=== PATIENT | male | born 1955 | race Caucasian/White ===

== ENCOUNTER 2022-01-29 09:01 | Outpatient (CLI) | payer OTHER, SELFPAY ==
--- NOTE | 2022-01-29 09:00 | ECG_ITS ---
Measurements Intervals [place] Rate: 60 P: 36 OR: 199 QRS: -14 QRSD: 110 T: 6 QT: 435 QTc: 438 Interpretive Statements SINUS RHYTHM WITH SINUS ARRHYTHMIA NO PREVIOUS ECG AVAILABLE FOR COMPARISON Electronically Signed On 01-29-2022 13:48:03 CDT by Soledad Cottrell M.D.
[2022-01-29 09:36] LABS: Prothrombin Time 12.6 Seconds (11.1-14.7)
[2022-01-29 09:37] LABS: Partial Thromboplastin Time 25.6 SECONDS (22.3-36.8)
[2022-01-29 09:38] LABS: Anion Gap 5 mmol/L (8-16); Blood Urea Nitrogen 26 mg/dL (9-20); Calcium 8.8 mg/dL (8.4-10.2); Carbon Dioxide 25 mmol/L (22-30); Chloride 105 mmol/L (98-107); Estimated Glomerular Filt Rate > 60; Glucose 96 mg/dL (65-110); Potassium 4.4 mmol/L (3.4-5.0); Sodium 135 mmol/L (137-145)
== END 2022-01-29 09:02 | disposition home or self-care (01) ==
LOC: ANHSURGERY 09:04
PROVIDERS: Anesthesiology; PCP Internal Medicine; Visit Provider Urology
DX: Z01.818 Encounter for other preprocedural examination (principal); I10 Essential (primary) hypertension; I49.9 Cardiac arrhythmia, unspecified
CPT/HCPCS: 36415; 80048; 85610; 85730; 93005

== ENCOUNTER 2022-01-31 01:02 | Day surgery (SDC) | payer OTHER, SELFPAY ==
[2022-01-28 11:24] VITALS: BMI 31.1
--- NOTE | 2022-01-28 11:44 | PC.NURSE ---
Addendum entered by Emily Brown RN 01/29/22 07:20: DO NOT TAKE LOSARTAN MORNING OF SURGERY. Original Note: Report to the Outpatient Waiting Room, entrance under the green pavilion located off [facility], at time _0630_ on date _01/31/22__. OR Time: _08__. - You and your visitor will be asked a series of questions to screen for COVID 19 for your protection. - A mask is required within the hospital. Preoperative COVID Testing Requirements: No COVID Test needed if: (proof is required; if not received patient will have Rapid Test prior to entry) - Patient has received COVID Vaccine at least 14 days prior to procedure date or - Patient has positive COVID test result within last 90 days of surgery date. COVID Test needed if above criteria is not met If not COVID vaccinated a COVID test must be conducted within 72 hours of surgery and patient is asked to isolate self from time of testing until procedure. You will go to the [facility] for your COVID testing. The [facility] site is located at the corner of [address] [facility]. You will only be called if COVID results are positive and your surgeon may reschedule your elective surgery date. Patients may have clear liquids (water, carbonated beverages, clear teas, apple juice) until 3 hours prior to surgery with a maximum of 20 ounces. - No food from midnight until time of surgery - Infants may have breast milk until 4 hours before surgery, formula 6 hours prior to surgery. - Children will be allowed to drink immediately following surgery. If applicable, please bring a bottle or sippy cup to assist with drinking. Juice, water, soda, and popsicles are readily available. For infants on formula, please bring formula the day of surgery. Pacifiers are allowed. Take the following medications with a SIP of water the morning of surgery: AM eye drops, losartan, flomax, venlafaxine,verapamil____ Medications to discontinue per physician ____hydrochlorothiazide___ Date to take last dose Please no make-up, nail hebrew, hairspray, perfume, deodorant, or body powder the day of surgery. No jewelry (including any body piercings) or valuables the day of surgery, leave them at home. Please take a shower or bath the night before, or the morning of, surgery with an antibacterial soap. Wear comfortable, loose fitting clothing. Children are encouraged to wear pajamas. - Jewelry must be removed prior to entering the operating room. Rings and piercings that are not removed may be cut off. - The hospital will not accept responsibility for valuables. - Please leave all valuables, including medications, at home the day of surgery. If you are going home after surgery, a licensed otr hazmat company driver must drive you home. - NO public transportation without another adult. - We recommend that an adult stay with you for 24 hours following discharge. - We also recommend that you do not drive, make important decision, drink alcoholic beverages, or take any drugs that were not prescribed by your health care provider for at least 24 hours after your discharge time. For Pediatric surgeries, we recommend two adults accompany the child home (only one inside the building at this time). One visitor will be allowed to accompany the patient into the hospital. Patients visitor will be instructed to remain with patient at all times or leave the building. We will allow the visitor to come back to the postoperative area when patient is ready. Follow any additional instructions given to you from your surgeon. Telephone instructions given to _patient___and asked if any additional questions and then verbalized understanding. Patient advised to call surgeon office or pre surgery nurse liaison [phone] if any additional questions.
[2022-01-31] VITALS (9 sets, daily range): BP systolic 136–191; BP diastolic 71–114; PULSE 63–95; RESP 9–16; TEMP 36.1–36.6; O2SAT 97–100
--- NOTE | ~2022-01-31 | XR_ITS ---
EXAMINATION: XR abdomen/kub 1V DATE: 01/31/2022 06:40 INDICATION: Kidney stone. TECHNIQUE: A supine view of the abdomen on 2 radiographs was obtained. COMPARISON: CT abdomen and pelvis 01/19/2022 FINDINGS: There are no dilated loops of bowel. There is a right internal ureteral stent in expected p osition. There is a 13 mm stone in right kidney. There is a 5 mm stone in left kidney. IMPRESSION: 1. Bilateral kidney stones. 2. Right internal ureteral stent in expected position. Reviewed, dictated and finalized at location A.
--- NOTE | 2022-01-31 06:38 | P.PNAN_ITS ---
Anes - Initial Pre Proc Eval Procedure: Operation Date: 01/31/22 08:30 Proposed Procedures p Right Extracorporeal Shock Wave Lithotripsy - Silvano Wilkes MD s Cystoscopy, Right Stent Removal - Silvano Wilkes MD Date/Time: 01/31/22 06:38 Surgeon: Silvano Wilkes MD Pre Op Diagnosis: right kidney stone Patient Data Age: 66 Gender: M Height: 1.73 m Weight: 92.99 kg Allergies Allergy/AdvReac Type Severity Reaction Status Date / Time No Known Allergies Allergy Unverified 01/28/22 11:10 Home Medications Medication Instructions Recorded Confirmed Type hydrochlorothiazide 12.5 mg PO DAILY 01/28/22 01/28/22 History latanoprost 1 drp EACH EYE QPM 01/28/22 01/28/22 History losartan 100 mg PO DAILY 01/28/22 01/28/22 History tamsulosin 0.4 mg PO DAILY 01/28/22 01/28/22 History timolol maleate 1 drp EACH EYE QAM 01/28/22 01/28/22 History trazodone 100 mg PO HS 01/28/22 01/28/22 History venlafaxine 150 mg PO QAM 01/28/22 01/28/22 History verapamil 240 mg PO QAM 01/28/22 01/28/22 History Patient hx anesthesia problems: none Family hx anesthesia problems: none Results Review: All pre-operative results and documents have been reviewed as part of the pre-operative evaluation. [facility] Past Medical History Medical History (Updated 01/31/22 @ 06:39 by Gustavo Mast DO) Anxiety BPH (benign prostatic hyperplasia) Hypertension Migraine Social History Social History (System 11/25/19 @ 08:55 by Lashon Fowler) Smoking status: Never smoker Alcohol intake: current Drinks per week: 4 Substance use: never Substance use type: does not use Living arrangements: with family Spiritual care concerns: No Anes - Eval Final PreProcedure Day of Procedure 01/31/22 06:38 Patient weight: obese Heart: regular rate and rhythm Lungs: clear to auscultation and normal air movement Airway: Mallampati scale class II Neurological: alert and oriented Last oral intake: >/= 8 hours ASA classification: III Emergent: no Anesthetic plan: proceed Anesthesia type and monitoring: general LMA and standard monitoring Results Review: All pre-operative results and documents have been reviewed as part of the pre-operative evaluation. Informed Consent: The patient's anesthetic plan and its attendant risks and benefits were discussed with the patient/family/POA. Questions were solicited and answers provided to the satisfaction of the patient/family/POA.
[2022-01-31] MEDS: LACTATED RINGERS 1,000 ML 30 ML IV CONT ×2 (07:12→10:01)
--- NOTE | 2022-01-31 08:18 | WPDHPUPDATE1 ---
History and Physical Update Update Date/Time: 01/31/22 08:18 History and Physical has been reviewed, including an updated exam of the patient. There are NO changes in the patient's condition. Risks, benefits, and alternatives have been discussed and questions answered. Patient agrees to proceed with procedure. Proceed with ESWL of right renal calculus, possible cysto with stent removal
[2022-01-31] MEDS: ceFAZolin 2 GM/D5W 50 ML 2 GM/50 ML BAG IVPB (08:33)
--- NOTE | 2022-01-31 09:20 | P.OP_ITS ---
Procedure Note - Detailed Date of Procedure 01/31/22 Pre-op Diagnosis right kidney stone Post-op Diagnosis Same Procedure Performed ESWL of right renal calculus Surgeon Silvano Wilkes MD Anesthesia General Description of Procedure Patient is taken to the operative suite and correctly identified. Once ane sthesia was obtained the stone was localized in both planes. Two thousand five hundred shocks were given the stone. There appeared to be fairly good fragmentation although it is very large stone. Given the size of the stone we decided to leave the stent at this time. Patient was taken recovery stable condition. He will follow-up with Dr. Grier next Thursday with a KUB Drains Yes (Has a right ureteral stent present) Packing No Pathology None sent Complications No immediate complications Condition Stable Disposition PACU
[2022-01-31] MEDS: ONDANSETRON INJ 4 MG/2 ML VIAL IV PUSH (09:56)
[2022-01-31] MEDS: hydrALAZINE HCL 20 MG/ML VIAL 10 MG IV PUSH (10:41)
[2022-01-31] MEDS: oxyCODONE HCL (*CRX) 5 MG TAB IR PO (11:09)
== END 2022-01-31 11:46 | disposition home or self-care (01) ==
PROVIDERS: PCP Internal Medicine; Visit Provider Urology
PROC: (CPT 50590; principal; 2022-01-31 08:30)
DX: N20.0 Calculus of kidney (principal); I10 Essential (primary) hypertension; N40.0 Benign prostatic hyperplasia without lower urinary tract symptoms; F41.9 Anxiety disorder, unspecified; E66.9 Obesity, unspecified; Z68.32 Body mass index [BMI] 32.0-32.9, adult
CPT/HCPCS: 50590; 36415; 74018; 80048; 85610; 85730; 93005; A9270; J0360; J0690; J1100; J2001; J2250; J2405; J2704; J7030; J7120

== ENCOUNTER 2022-02-07 12:44 | Outpatient (CLI) | payer OTHER, SELFPAY ==
--- NOTE | ~2022-02-07 | XR_ITS ---
EXAMINATION: XR abdomen/kub 1V DATE: 02/07/2022 12:56 INDICATION: Right kidney stone. TECHNIQUE: A supine view of the abdomen on 2 radiographs was obtained. COMPARISON: Abdomen radiograph 01/31/22, CT abdomen and pelvis 01/19/2022 FINDINGS: There are no dilated loops of bowel. There is a right internal ureteral stent in expected p osition. There is a cluster of approximately 7 stones in right kidney lower pole measuring up to 5 mm . There is a 3 mm stone at right ureteropelvic junction. There is a 5 mm stone in left kidney. IMPRESSION: 1. Stones in the kidneys and right ureteropelvic junction. Right internal ureteral stent in expected position. Reviewed, dictated and finalized at location A. IMPRESSION: 1. Stones in the kidneys and right ureteropelvic junction. Right internal urete ral stent in expected position.
== END 2022-02-07 12:45 | disposition home or self-care (01) ==
PROVIDERS: PCP Internal Medicine; Visit Provider Urology
DX: N20.2 Calculus of kidney with calculus of ureter (principal); Z01.818 Encounter for other preprocedural examination
CPT/HCPCS: 74018

== ENCOUNTER 2022-04-18 14:10 | Outpatient (CLI) | payer OTHER, SELFPAY ==
--- NOTE | ~2022-04-18 | XR_ITS ---
EXAMINATION: XR abdomen/kub 1V DATE: 04/18/2022 14:19 INDICATION: Kidney stone. TECHNIQUE: A supine view of the abdomen on 2 radiographs was obtained. COMPARISON: Abdomen radiographs 02/07/2022, CT abdomen and pelvis 01/19/2022 FINDINGS: There are no dilated loops of bowel. There is a 5 mm stone in left kidney. There are two 3 mm stones in right kidney. IMPRESSION: 1. Bilateral kidney stones. Reviewed, dictated and finalized at location A. IMPRESSION: 1. Bilateral kidney stones.
== END 2022-04-18 14:11 | disposition home or self-care (01) ==
PROVIDERS: PCP Internal Medicine; Visit Provider Urology
DX: N20.0 Calculus of kidney (principal)
CPT/HCPCS: 74018

== ENCOUNTER 2022-05-13 15:34 | Outpatient (CLI) | payer OTHER, SELFPAY | END 2022-05-13 15:35 | disposition home or self-care (01) | PROVIDERS: PCP Internal Medicine; Visit Provider Urology | DX: N20.0 Calculus of kidney (principal); Z01.818 Encounter for other preprocedural examination | CPT/HCPCS: 87086; 87088 ==

== ENCOUNTER 2022-05-16 00:47 | Day surgery (SDC) | payer OTHER, SELFPAY ==
--- NOTE | 2022-05-14 07:34 | P.HP_ITS ---
History of Present Illness History of Present Illness Consent: Risks, benefits, and alternatives have been discussed and questions answered. Patient agrees to proceed with procedure. Chief complaint: Tyler Kidney Stones Narrative: Sean Peraza is a 66 year old male, known to have had a recent episode with obstructive pyelonephritis resulting from a right ureteral calculus. Follow-up imaging demonstrates punctate stones in his right kidney and a 5-6 mm left lower calyceal stone. After discussion of options including observation, endoscopic manipulation and ESWL he has elected for the latter. He is aware of the risk including, but not limited to, adverse cardiopulmonary events, perinephric hematoma and persistent stone fragments. Review of Systems Cardiovascular: Cardiovascular: Denies chest pain, Denies lightheadedness, Denies palpitations and Denies dyspnea Respiratory: Respiratory: Denies dyspnea Gastrointestinal: Gastrointestinal: Denies diarrhea, Denies nausea and Denies vomiting Genitourinary: Genitourinary: Denies hematuria and Denies dysuria Endocrine: Endocrine: Denies palpitations COUNT INCLUDES THE [facility] Past Medical History Medical History (Updated 05/14/22 @ 07:36 by Ishmael Grier MD) Anxiety BPH (benign prostatic hyperplasia) Hypertension Migraine Social History Social History (System 11/25/19 @ 08:55 by Lashon Fowler) Smoking status: Never smoker Alcohol intake: current Drinks per week: 4 Substance use: never Substance use type: does not use Spiritual care concerns: No Meds Home Medications and Allergies Home Medications Medication Instructions Recorded Confirmed Type hydrochlorothiazide 12.5 mg capsule 12.5 mg PO DAILY 01/28/22 01/28/22 History latanoprost 0.005 % eye drops 1 drp EACH EYE QPM 01/28/22 01/28/22 History losartan 100 mg tablet 100 mg PO DAILY 01/28/22 01/28/22 History tamsulosin 0.4 mg capsule 0.4 mg PO DAILY 01/28/22 01/28/22 History timolol maleate 0.5 % eye drops 1 drp EACH EYE QAM 01/28/22 01/28/22 History trazodone 100 mg tablet 100 mg PO HS 01/28/22 01/28/22 History venlafaxine 150 mg 150 mg PO QAM 01/28/22 01/28/22 History capsule,extended release 24 hr verapamil 240 mg tablet,extended 240 mg PO QAM 01/28/22 01/28/22 History release Allergies Allergy/AdvReac Type Severity Reaction Status Date / Time No Known Allergies Allergy Unverified 01/28/22 11:10 Exam Const: General: no acute distress Resp: Effort & Inspection: normal respiratory effort GI: Inspection: non-distended GI Palp: No abdominal tenderness and No Guarding due to palpation present (GI) Auscultation: normal bowel sounds Assessment and Plan Assessment and plan (1) Left renal stone: Code(s): N20.0 - Calculus of kidney Status: Acute Assessment and Plan: * Left ESWL
[2022-05-14 13:48] VITALS: BMI 31.8
--- NOTE | 2022-05-14 13:49 | SUR.PREOP ---
Report to the Outpatient Waiting Room, entrance under the green pavilion located off [facility], at time __0930 on date _05/16/22 . OR Time: _1130 . - You and your visitor will be asked a series of questions to screen for COVID 19 for your protection. - Only one visitor is allowed at this time. - The patient visitor is requested to leave or wait in car when not with patient. - A mask is required within the hospital. Patients may have clear liquids (water, carbonated beverages, clear teas, apple juice) until 3 hours prior to surgery with a maximum of 20 ounces. - No food from midnight until time of surgery - Infants may have breast milk until 4 hours before surgery, infant formula 6 hours prior to surgery. - Children will be allowed to drink immediately following surgery. If applicable, please bring a bottle or sippy cup to assist with drinking. Juice, water, soda, and popsicles are readily available. For infants on formula, please bring formula the day of surgery. Pacifiers are allowed. Take the following medications with a SIP of water the morning of surgery: __venlafaxine,verapamil_,timolol eye gtts Medications to discontinue per physician n/a Date to take last dose___n/a Please no make-up, nail bahraini, hairspray, perfume, deodorant, or body powder the day of surgery. No jewelry (including any body piercings) or valuables the day of surgery, leave them at home. Please take a shower or bath the night before, or the morning of, surgery with an antibacterial soap. Wear comfortable, loose fitting clothing. Children are encouraged to wear pajamas. - Jewelry must be removed prior to entering the operating room. Rings and piercings that are not removed may be cut off. - The hospital will not accept responsibility for valuables. - Please leave all valuables, including medications, at home the day of surgery. If you are going home after surgery, a licensed reefer truck driver must drive you home. - NO public transportation without another adult. - We recommend that an adult stay with you for 24 hours following discharge. - We also recommend that you do not drive, make important decision, drink alcoholic beverages, or take any drugs that were not prescribed by your health care provider for at least 24 hours after your discharge time. For Pediatric surgeries, we recommend two adults accompany the child home (only one inside the building at this time). Follow any additional instructions given to you from your surgeon. If you or anyone in your household have experienced Covid symptoms in the past week, please notify your surgeon or the nurse liaison at the phone number below for possible testing. Telephone instructions given to gabriela barth and asked if any additional questions and then verbalized understanding. Patient advised to call surgeon office or pre surgery nurse liaison [phone] if any additional questions.
[2022-05-16] VITALS (8 sets, daily range): BP systolic 145–185; BP diastolic 86–99; PULSE 59–71; RESP 12–20; TEMP 36.1–37.1; O2SAT 93–100
--- NOTE | ~2022-05-16 | XR_ITS ---
EXAMINATION: XR abdomen/kub 1V DATE: 05/16/2022 09:46 INDICATION: Kidney stone. TECHNIQUE: A supine view of the abdomen on 2 radiographs was obtained. COMPARISON: Abdomen radiographs 04/18/2022, CT abdomen and pelvis 01/19/2022 FINDINGS: There are no dilated loops of bowel. There is a 5 mm stone in left kidney. There is a clust er of 3 stones measuring up to 3 mm in right kidney. IMPRESSION: 1. Bilateral kidney stones. Reviewed, dictated and finalized at location A. IMPRESSION: 1. Bilateral kidney stones.
--- NOTE | 2022-05-16 06:59 | WPDHPUPDATE1 ---
History and Physical Update Update Date/Time: 05/16/22 06:59 History and Physical has been reviewed, including an updated exam of the patient. There are NO changes in the patient's condition. Risks, benefits, and alternatives have been discussed and questions answered. Patient agrees to proceed with procedure.
[2022-05-16] MEDS: LACTATED RINGERS 1,000 ML 30 ML IV CONT (10:15)
[2022-05-16 10:44] LABS: Partial Thromboplastin Time 27.2 SECONDS (22.3-36.8)
[2022-05-16 10:46] LABS: Anion Gap 6 mmol/L (8-16); Blood Urea Nitrogen 26 mg/dL (9-20); Calcium 8.6 mg/dL (8.4-10.2); Carbon Dioxide 30 mmol/L (22-30); Chloride 103 mmol/L (98-107); Estimated CRCL calculation 76 ml/min; Estimated Glomerular Filt Rate > 60; Glucose 95 mg/dL (65-110); Potassium 4.2 mmol/L (3.4-5.0); Sodium 139 mmol/L (137-145)
--- NOTE | 2022-05-16 10:58 | WPDANESEPPF ---
Anes - Initial Pre Proc Eval Procedure: Operation Date: 05/16/22 11:30 Proposed Procedures p Left Extracorporeal Shock Wave Lithotripsy, with Possible Left Stent Placement - Ishmael Grier MD Date/Time: 05/16/22 10:58 Surgeon: Ishmael Grier MD Pre Op Diagnosis: Tyler Kidney Stones Patient Data Age: 66 Gender: M Height: 1.75 m Weight: 97.72 kg Allergies Allergy/AdvReac Type Severity Reaction Status Date / Time No Known Allergies Allergy Unverified 05/14/22 13:35 Home Medications Medication Instructions Recorded Confirmed Type hydrochlorothiazide 12.5 mg capsule 12.5 mg PO DAILY 01/28/22 05/14/22 History latanoprost 0.005 % eye drops 1 drp EACH EYE QPM 01/28/22 05/14/22 History losartan 100 mg tablet 100 mg PO DAILY 01/28/22 05/14/22 History tamsulosin 0.4 mg capsule 0.4 mg PO DAILY 01/28/22 05/14/22 History timolol maleate 0.5 % eye drops 1 drp EACH EYE QAM 01/28/22 05/14/22 History trazodone 100 mg tablet 100 mg PO HS 01/28/22 05/14/22 History venlafaxine 150 mg 150 mg PO QAM 01/28/22 05/14/22 History capsule,extended release 24 hr verapamil 240 mg tablet,extended 240 mg PO QAM 01/28/22 05/14/22 History release Laboratory Tests 05/16/22 05/16/22 10:07 10:07 PT 13.0 Seconds Seconds (11.1-14.7) INR 1.0 APTT 27.2 SECONDS SECONDS (22.3-36.8) Sodium 139 mmol/L mmol/L (137-145) Potassium 4.2 mmol/L mmol/L (3.4-5.0) Chloride 103 mmol/L mmol/L (98-107) Carbon Dioxide 30 mmol/L mmol/L (22-30) Anion Gap 6 mmol/L L mmol/L (8-16) BUN 26 mg/dL H mg/dL (9-20) Creatinine 1.00 mg/dL mg/dL (0.7-1.3) Estim Creat Clear Calc 76 ml/min ml/min Estimated GFR > 60 (59 - ) Glucose 95 mg/dL mg/dL (65-110) Calcium 8.6 mg/dL mg/dL (8.4-10.2) Patient hx anesthesia problems: none Family hx anesthesia problems: none Results Review: All pre-operative results and documents have been reviewed as part of the pre-operative evaluation. [facility] Past Medical History Medical History Anxiety BPH (benign prostatic hyperplasia) Hypertension Migraine Social History Social History Smoking status: Never smoker Alcohol intake: current Drinks per week: 4 Substance use: never Substance use type: does not use Living arrangements: with family Spiritual care concerns: No Anes - Eval Final PreProcedure Day of Procedure 05/16/22 10:58 Patient weight: overweight Neurological: alert and oriented Last oral intake: >/= 8 hours ASA classification: II Emergent: no Anesthetic plan: proceed Anesthesia type and monitoring: general LMA and standard monitoring Results Review: All pre-operative results and documents have been reviewed as part of the pre-operative evaluation. Informed Consent: The patient's anesthetic plan and its attendant risks and benefits were discussed with the patient/family/POA. Questions were solicited and answers provided to the satisfaction of the patient/family/POA.
[2022-05-16] MEDS: ceFAZolin 2 GM/D5W 50 ML 2 GM/50 ML BAG IVPB (12:05)
--- NOTE | 2022-05-16 12:21 | W.PM.PROC2 ---
Procedure Note - Detailed Date of Procedure 05/16/22 Pre-op Diagnosis Left kidney stone Post-op Diagnosis Same Procedure Performed Left ESWL Surgeon Ishmael Grier MD Description of Procedure The patient was brought to the operative suite where he was placed in the supine position on the Dornier lithotripsy table. The focal point of the lithotripter was placed at a 5-6mm left lower pole calculus. A total of 2500 shocks were delivered at a power setting of 4. There appeared to be good fragmentation of the stone. The patient tolerated the procedure well and was taken to the recovery room in good condition. Drains No Packing No Pathology None sent Condition Stable Disposition PACU
[2022-05-16] MEDS: KETOROLAC 30 MG/ML VIAL (*BKC) IV PUSH (13:19)
--- NOTE | 2022-05-16 13:32 | SUR.PHASEI ---
1330 - dr. petty aware of pt's blood pressure. 175/109 hr 61. no orders received
== END 2022-05-16 14:28 | disposition home or self-care (01) ==
PROVIDERS: Anesthesiology; PCP Internal Medicine; Visit Provider Urology
PROC: (CPT 50590; principal; 2022-05-16 11:30)
DX: N20.0 Calculus of kidney (principal); I10 Essential (primary) hypertension; N40.0 Benign prostatic hyperplasia without lower urinary tract symptoms; F41.9 Anxiety disorder, unspecified
CPT/HCPCS: 50590; 36415; 74018; 80048; 85610; 85730; 87086; 87088; J0690; J1100; J1885; J2250; J2405; J2704; J3010; J7120

== ENCOUNTER 2022-06-27 13:09 | Outpatient (CLI) | payer OTHER, SELFPAY ==
--- NOTE | ~2022-06-27 | XR_ITS ---
XR abdomen/kub 1V DATE: 06/27/2022 13:22 INDICATION: Kidney calculus follow-up TECHNIQUE: AP projection, 2 views COMPARISON: KUB 04/18/2022 KUB FINDINGS: Stable approximately 5 mm calcified calculus of lower pole of left kidney. Smaller calculus or group of calculi at the lower pole of the right kidney. There is no significant c hange since 05/16/2022. Associated as are intact. No visceromegaly is evident. No evidence of bowel obstruction. IMPRESSION: Stable mild bilateral nonobstructive nephrolithiasis Reviewed, dictated and finalized at Location A. Reviewed, dictated and finalized at location B.
== END 2022-06-27 13:10 | disposition home or self-care (01) ==
PROVIDERS: PCP Internal Medicine; Visit Provider Urology
DX: N20.0 Calculus of kidney (principal)
CPT/HCPCS: 74018

== ENCOUNTER 2022-08-21 16:08 | Outpatient (CLI) | payer OTHER, SELFPAY ==
--- NOTE | ~2022-08-21 | XR_ITS ---
XR abdomen/kub 1V 08/21/2022 16:20 Indication: Right-sided kidney stone Procedure: KUB Comparison: Comparison to multiple prior studies sequentially, with oldest reviewed study dated 03/2022. Findings: There are bilateral renal stones, largest in the lower pole of the left kidney measuring 5 mm. Bowel gas pattern is nonobstructive. Moderate colonic fecal loading. No acute osseous abnormality . Lung bases are unremarkable. Impression: 1: Stable bilateral nephrolithiasis. Reviewed, dictated and finalized at location A. RIPPER Impression: 1: Stable bilateral nephrolithiasis.
== END 2022-08-21 16:09 | disposition home or self-care (01) ==
LOC: ANHIMG 16:10
PROVIDERS: PCP Internal Medicine; Visit Provider Urology
DX: N20.0 Calculus of kidney (principal)
CPT/HCPCS: 74018

== ENCOUNTER 2022-11-25 08:03 | Emergency (ER) | payer MEDICARE, SELFPAY ==
--- NOTE | ~2022-11-25 | CT_ITS ---
EXAMINATION: CT abdomen pelvis w con DATE: 11/25/2022 08:48 INDICATION: Left lower quadrant pain TECHNIQUE: Computed tomography (CT) of the abdomen and pelvis was performed with 100 cc Omnipaque 350 intravenous contrast. The dose-length product was 1147.72 mGy-cm. Automated exposure control and ite rative reconstruction technique were employed. COMPARISON: None. FINDINGS: There is dependent atelectasis. Heart size normal. No significant pleural or pericardial ef fusion. Mild atherosclerosis. No aneurysm. No lymphadenopathy. Fatty infiltration of the liver. Gallbladder is present. The spleen, pancreas, adrenal glands are unr emarkable. There are nonobstructing right renal stones. There is bilateral symmetric Non Specific per inephric stranding. No significant hydronephrosis. There are bladder stones. No ureteral stones are i dentified. Small fat-containing umbilical hernia. There is mild thickening of the descending and sigm oid colon which may be due to underdistention or mild colitis. No free air or free fluid. No lymphade nopathy. Mild bladder wall thickening which may be due to underdistention or cystitis. Prostate gland is mildly prominent. Moderate lumbar spondylosis. IMPRESSION: 1. Nonobstructing right renal and bladder stones. 2: Mild bladder wall thickening which may be due to underdistention or cystitis. 3: Mild thickening of the descending and sigmoid colon which may be due to underdistention or mild c olitis. Reviewed, dictated and finalized at location [facility]. [facility] IMPRESSION: 1. Nonobstructing right renal and bladder stones. 2: Mild bladder wall thickening which may be due to underdistention or cystitis . 3: Mild thickening of the descending and sigmoid colon which may be due to und erdistention or mild colitis.
[2022-11-25 08:15] VITALS: BP 182/101; PULSE 62; RESP 18; TEMP 36.6; O2SAT 98
[2022-11-25 08:31] LABS: Basophils Percent Auto 0.6 % (0.2-1.2); Eosinophils Absolute Auto 0.1 K/mm3 (0-0.3); Eosinophils Percent Auto 2.7 % (0-4.4); Hematocrit 39.3 % (42.0-52.0); Hemoglobin 13.7 g/dL (14.0-18.0); Immature Granulocyte Absolute 0.01 K/mm3 (0.00-0.031); Immature Granulocyte Percent A 0.2 % (0-0.5); Lymphocytes Absolute Auto 1.99 K/mm3 (0.9-3.2); Lymphocytes Percent Auto 41.9 % (18.3-44.2); Mean Corpuscular HGB Conc 34.9 g/dl (32-36); Mean Corpuscular Volume 91.8 fl (80-100); Mean Platelet Volume 9.9 fl (7.4-10.4); Monocytes Absolute Auto 0.6 K/mm3 (0.1-0.6); Monocytes Percent Auto 11.6 % (2.6-8.5); Platelet Count Result 229 k/mm3 (150-375); Red Blood Count 4.28 M/mm3 (4.6-6.20); Red Cell Distribution Width 12.8 % (11.5-14.5); White Blood Count 4.8 K/mm3 (4.5-10.0)
[2022-11-25 08:32] LABS: Appearance Urine Clear (Clear); Bilirubin Urine Negative (Negative); Blood Urine Negative (Negative); Color Urine Yellow (Yellow); Glucose Urine UA Negative (Negative); Ketones Urine Negative (Negative); Leukocyte Esterase Ur Negative LEU/UL (Negative); Nitrate Urine Negative (Negative); Protein Urine Negative (Negative); Urobilinogen Urine 0.2 mg/dL (<2.0); pH Urine 5.5 (5.0-9.0)
[2022-11-25] MEDS: MORPHINE SULFATE (*CRX) 4 MG/ML INJ IV PUSH (08:33)
[2022-11-25] MEDS: ONDANSETRON INJ 4 MG/2 ML VIAL IV PUSH (08:33)
[2022-11-25] MEDS: SODIUM CHLORIDE 0.9% IV 1,000 ML 999 ML IV CONT (08:33)
[2022-11-25 08:37] LABS: Add Urine Microscopic? NO
[2022-11-25 08:42] LABS: Alanine Aminotransferase 41 U/L (6-50); Albumin Level 4.4 g/dL (3.5-5.1); Alkaline Phosphatase 59 U/L (38-126); Anion Gap 6 mmol/L (8-16); Aspartate Amino Transferase 30 U/L (17-59); Bilirubin,Total 0.7 mg/dL (0.2-1.3); Blood Urea Nitrogen 29 mg/dL (9-20); Calcium 8.7 mg/dL (8.4-10.2); Carbon Dioxide 24 mmol/L (22-30); Chloride 105 mmol/L (98-107); Estimated CRCL calculation 70 ml/min; Estimated Glomerular Filt Rate > 60; Glucose 108 mg/dL (65-110); Potassium 4.2 mmol/L (3.4-5.0); Sodium 135 mmol/L (137-145)
--- NOTE | 2022-11-25 09:36 | ED.ABDPAIN ---
HPI - Abdominal Pain General Chief Complaint: Abdominal Pain Stated Complaint: LLQ pain Time Seen by Provider: 11/25/22 08:06 History of Present Illness HPI narrative: Patient is a 67-year-old male who presents ER with sudden onset left lower quadrant abdominal pain. Began early this morning. Associate with nausea. Radiates into the testicle. Attempted to have a bowel movement without improvement. No fevers or chills or sweats. Has history of kidney stones as well as lithotripsy and stent placement in the past. Follows with Dr. Grier. Symptoms have been steadily increasing throughout the morning and opted to come in for further evaluation. Related Data Home Medications Medication Instructions Recorded Confirmed hydrochlorothiazide 12.5 mg capsule 12.5 mg PO DAILY 01/28/22 05/14/22 latanoprost 0.005 % eye drops 1 drp EACH EYE QPM 01/28/22 05/14/22 losartan 100 mg tablet 100 mg PO DAILY 01/28/22 05/14/22 tamsulosin 0.4 mg capsule 0.4 mg PO DAILY 01/28/22 05/14/22 timolol maleate 0.5 % eye drops 1 drp EACH EYE QAM 01/28/22 05/16/22 trazodone 100 mg tablet 100 mg PO HS 01/28/22 05/14/22 venlafaxine 150 mg 150 mg PO QAM 01/28/22 05/16/22 capsule,extended release 24 hr verapamil 240 mg tablet,extended 240 mg PO QAM 01/28/22 05/16/22 release Allergies Allergy/AdvReac Type Severity Reaction Status Date / Time No Known Allergies Allergy Verified 11/25/22 08:18 Review of Systems Review of Systems: All systems reviewed & are unremarkable except as noted in HPI and below Constitutional: Constitutional: Denies chills and Denies fever(s) Gastrointestinal: Gastrointestinal: Reports abdominal pain, Denies constipation, Reports nausea and Denies vomiting Genitourinary: Genitourinary: Denies hematuria, Denies dysuria, Reports testicular pain and Denies urinary frequency [facility] Past Medical History Medical History Anxiety BPH (benign prostatic hyperplasia) Hypertension Migraine Social History Social History Smoking status: Never smoker Alcohol intake: current Drinks per week: 4 Substance use: never Substance use type: does not use Living arrangements: with family Spiritual care concerns: No Exam Narrative: GENERAL: Well-appearing, well-nourished, and in no acute distress. HEAD: Normocephalic, atraumatic. EYES: PERRL and EOMI. ENT: Mucous membranes moist. CHEST: Clear to auscultation. No respiratory distress. HEART: Regular rate and rhythm. Normal peripheral pulses. ABDOMEN: Soft, nontender, nondistended. EXTREMITIES: Normal range of motion. No edema. NEURO: Alert and oriented x3. PSYCH: Normal mood and affect. Course Course Emergency Course: Patient resting comfortably. Informed of lab and imaging results. It appears patient may have passed a couple stones that are now in the bladder. I discussed case with Dr. Wilkes with urology. Patient passed his stones in the ER and they were placed in a collection cup. Dr. Wilkes would like the patient to be on Bactrim for 3 days and ring his stones to the office. Patient aware of diagnosis and treatment plan. Vital Signs Vital signs: Vital Signs Temperature 97.9 F 11/25/22 08:15 Pulse Rate 62 11/25/22 08:15 Respiratory Rate 18 11/25/22 08:15 Blood Pressure 182/101 H 11/25/22 08:15 Pulse Oximetry 98 11/25/22 08:15 Oxygen Delivery Room Air 11/25/22 08:15 Temperature 97.9 F 11/25/22 08:15 Pulse Rate 62 11/25/22 08:15 Respiratory Rate 18 11/25/22 08:15 Blood Pressure 182/101 H 11/25/22 08:15 Pulse Oximetry 98 11/25/22 08:15 Oxygen Delivery Room Air 11/25/22 08:15 MDM - Abdominal Pain Lab Data 11/25/22 08:22 11/25/22 08:22 Labs: Lab Results 11/25/22 11/25/22 11/25/22 Range/Units 08:22 08:22 08:22 WBC 4.8 (4.5-10.0) K/mm3 RBC 4.28 L (4.6
[2022-11-25 09:42] VITALS: BP 145/100; PULSE 89; RESP 20; O2SAT 98
== END 2022-11-25 09:54 | disposition home or self-care (01) ==
PROVIDERS: Emergency Provider Emergency Medicine; PCP Internal Medicine
DX: N20.0 Calculus of kidney (principal); N40.0 Benign prostatic hyperplasia without lower urinary tract symptoms; I10 Essential (primary) hypertension; F41.9 Anxiety disorder, unspecified; Z87.442 Personal history of urinary calculi; R93.41 Abnormal radiologic findings on diagnostic imaging of renal pelvis, ureter, or bladder
CPT/HCPCS: 36415; 74177; 80053; 81003; 85025; 96361; 96374; 96375; 99284; J2270; J2405; J7030; Q9967

== ENCOUNTER 2022-12-04 16:54 | Outpatient (CLI) | payer MEDICARE, SELFPAY ==
--- NOTE | ~2022-12-04 | XR_ITS ---
Supine and upright views of the abdomen Clinical history: Kidney stone Findings: Bowel gas pattern is nonspecific. No evidence for obstruction or free air. Protocol 2-3 mm right lower pole renal stone noted. Osseous structures are intact. Impression: Probable 2-3 mm right lower pole renal stone. Reviewed, dictated and finalized at [facility]. [facility] Impression: Probable 2-3 mm right lower pole renal stone.
== END 2022-12-04 16:55 | disposition home or self-care (01) ==
PROVIDERS: PCP Internal Medicine; Visit Provider Urology
DX: N20.0 Calculus of kidney (principal)
CPT/HCPCS: 74018

== ENCOUNTER 2023-01-13 07:01 | Outpatient (CLI) | payer MEDICARE, SELFPAY ==
--- NOTE | ~2023-01-13 | XR_ITS ---
Clinical Indication: Cough PA and lateral views of the chest: Comparison: 04/04/2015 Findings: Stable calcified granuloma the right mid to lower lung zone. The lungs are otherwise clear, without evidence of focal consolidation or pleural effusion. Cardiomediastinal silhouette is within normal limits. Bones and soft tissues are unremarkable. Impression: No significant abnormality seen. Reviewed, dictated and finalized at location . Impression: No significant abnormality seen.
[2023-01-13 07:22] LABS: Basophils Absolute Auto 0.1 K/mm3 (0.0-0.1); Basophils Percent Auto 1.1 % (0.2-1.2); Eosinophils Absolute Auto 0.2 K/mm3 (0-0.3); Eosinophils Percent Auto 2.8 % (0-4.4); Hematocrit 40.6 % (42.0-52.0); Hemoglobin 13.8 g/dL (14.0-18.0); Immature Granulocyte Absolute 0.01 K/mm3 (0.00-0.031); Immature Granulocyte Percent A 0.2 % (0-0.5); Lymphocytes Absolute Auto 2.53 K/mm3 (0.9-3.2); Lymphocytes Percent Auto 44.9 % (18.3-44.2); Mean Corpuscular Hemoglobin 31.4 pg (26-34); Mean Corpuscular Volume 92.5 fl (80-100); Mean Platelet Volume 9.6 fl (7.4-10.4); Monocytes Absolute Auto 0.6 K/mm3 (0.1-0.6); Monocytes Percent Auto 10.8 % (2.6-8.5); Neutrophils Absolute Auto 2.3 K/mm3 (1.3-6.7); Neutrophils Percent Auto 40.2 % (45.5-73.1); Platelet Count Result 220 k/mm3 (150-375); Red Blood Count 4.39 M/mm3 (4.6-6.20); Red Cell Distribution Width 12.6 % (11.5-14.5); White Blood Count 5.6 K/mm3 (4.5-10.0)
[2023-01-13 07:36] LABS: Alanine Aminotransferase 37 U/L (6-50); Albumin Level 4.4 g/dL (3.5-5.1); Alkaline Phosphatase 56 U/L (38-126); Anion Gap 5 mmol/L (8-16); Aspartate Amino Transferase 27 U/L (17-59); Bilirubin,Total 0.6 mg/dL (0.2-1.3); Blood Urea Nitrogen 31 mg/dL (9-20); Calcium 8.8 mg/dL (8.4-10.2); Carbon Dioxide 29 mmol/L (22-30); Chloride 106 mmol/L (98-107); Cholesterol 226 mg/dL (0-200); Estimated Glomerular Filt Rate > 60; Glucose 102 mg/dL (65-110); HDL Direct 38 mg/dL; Potassium 4.1 mmol/L (3.4-5.0); Sodium 140 mmol/L (137-145); Triglycerides 299 mg/dL (<150)
[2023-01-13 07:48] LABS: LDL Cholesterol Direct 93 mg/dL
[2023-01-13 08:05] LABS: Prostate Specific Antigen 1.2 ng/mL (< OR = 4.0)
== END 2023-01-13 07:02 | disposition home or self-care (01) ==
PROVIDERS: PCP Internal Medicine; Visit Provider Internal Medicine
DX: Z00.00 Encounter for general adult medical examination without abnormal findings (principal); R05.9 Cough, unspecified; I10 Essential (primary) hypertension; N20.0 Calculus of kidney; R53.83 Other fatigue; R74.8 Abnormal levels of other serum enzymes; Z12.5 Encounter for screening for malignant neoplasm of prostate
CPT/HCPCS: 36415; 71046; 80053; 80061; 84153; 84443; 85025; G0103

== ENCOUNTER 2023-03-17 09:26 | Outpatient (CLI) | payer MEDICARE, SELFPAY ==
--- NOTE | 2023-03-17 09:33 | ECHO_ITS ---
Patient Info Name: Sean Peraza Age: 67 years : 1955 Gender: Male Ht: 68 in Wt: 215 lbs BSA: 2.20 m2 HR: 60 bpm BP: 146 / 105 mmHg Technical Quality: Good Exam Date: 03/17/2023 9:42 AM Exam Location: [facility] Patient Status: Outpatient Admit Date: 03/17/2023 Staff Ordering Physician: Lloyd Chavez DO Personal Fitness Manager: Aixa Campos RDCS Attending Provider: Lloyd Chavez DO Referring Physician: Scott OBREGON; Exam Type: CA echo doppler color flow Study Info Indications R06.09 - Other forms of dyspnea Complete two-dimensional, color flow and Doppler transthoracic echocardiogram is performed. Summary 1. Complete two-dimensional, color flow and Doppler transthoracic echocardiogram is performed. 2. Left ventricular chamber dimension is normal. 3. Left ventricular systolic function is normal, estimated at 60-65%. 4. The left ventricular diastolic function is grade I diastolic dysfunction. 5. E/e' 7 is not elevated. 6. Global longitudinal strain is normal at -17.2%. 7. There is mild aortic valve sclerosis. 8. No pulmonary hypertension, estimated pulmonary arterial systolic pressure is 23 mmHg. Left Ventricle E/e' 7 is not elevated. Global longitudinal strain is normal at -17.2%. Left ventricular chamber dimension is normal. Left ventricular systolic function is normal, estimated at 60-65%. The left ventricular diastolic function is grade I diastolic dysfunction. Right Ventricle Right ventricular systolic function is normal and with normal TAPSE 2.7 cm. Right ventricular chamber dimension is normal. Left Atria Left atrial chamber dimension is normal. Right Atria Right atrial chamber dimension is normal. Aortic Valve The aortic valve is trileaflet. There is mild aortic valve sclerosis. There is no aortic valve stenosis. There is no aortic valve regurgitation. Pulmonic Valve There is no pulmonic regurgitation. Mitral Valve There is no mitral valve stenosis. There is no mitral valve regurgitation. Tricuspid Valve There is no tricuspid valve regurgitation. No pulmonary hypertension, estimated pulmonary arterial systolic pressure is 23 mmHg. Pericardium/Pleural There is no pericardial effusion. Inferior Vena Cava Normal inferior vena cava with >50% collapse upon inspiration consistent with normal right atrial pressure, 5 mmHg. Aorta The aortic root size at the sinus of Valsalva is normal. Left Ventricular Outflow Tract Name Value Normal LVOT 2D LVOT Diameter 2.1 cm LVOT Doppler LVOT Peak Gradient 3 mmHg LVOT Mean Gradient 2 mmHg LVOT VTI 19 cm LVOT VTI/AV VTI Ratio 1.0 LVOT Stroke Volume 67 ml LVOT CO 4.0 l/min LVOT CI 1.8 l/min/m2 Pulmonic Valve Name Value Normal RVOT Doppler RVOT Peak G
== END 2023-03-17 09:27 | disposition home or self-care (01) ==
LOC: ANHCARD 09:27
PROVIDERS: PCP Internal Medicine; Visit Provider Internal Medicine
DX: R06.09 Other forms of dyspnea (principal)
CPT/HCPCS: 93306

== ENCOUNTER 2023-04-06 07:29 | Outpatient (CLI) | payer MEDICARE, SELFPAY ==
[2023-04-06 08:09] LABS: Basophils Percent Auto 0.6 % (0.2-1.2); Eosinophils Absolute Auto 0.2 K/mm3 (0-0.3); Eosinophils Percent Auto 2.5 % (0-4.4); Hematocrit 40.9 % (42.0-52.0); Hemoglobin 13.9 g/dL (14.0-18.0); Immature Granulocyte Absolute 0.03 K/mm3 (0.00-0.031); Immature Granulocyte Percent A 0.4 % (0-0.5); Lymphocytes Percent Auto 32.3 % (18.3-44.2); Mean Corpuscular Hemoglobin 31.3 pg (26-34); Mean Corpuscular Volume 92.1 fl (80-100); Mean Platelet Volume 9.5 fl (7.4-10.4); Monocytes Absolute Auto 0.7 K/mm3 (0.1-0.6); Monocytes Percent Auto 9.8 % (2.6-8.5); Neutrophils Absolute Auto 3.9 K/mm3 (1.3-6.7); Neutrophils Percent Auto 54.4 % (45.5-73.1); Platelet Count Result 227 k/mm3 (150-375); Red Blood Count 4.44 M/mm3 (4.6-6.20); Red Cell Distribution Width 12.7 % (11.5-14.5); White Blood Count 7.1 K/mm3 (4.5-10.0)
[2023-04-06 08:21] LABS: Iron 119 ug/dL (49-181)
[2023-04-06 08:35] LABS: Percent Iron Saturation 39 % (20-50)
[2023-04-09 16:39] LABS: Testosterone Free 41.6 pg/mL (35.0-155.0); Testosterone Total 243 ng/dL (250-1100)
[2023-04-10 04:49] LABS: Prolactin 7.9 ng/mL (***)
== END 2023-04-06 07:30 | disposition home or self-care (01) ==
PROVIDERS: PCP Internal Medicine; Visit Provider Internal Medicine
DX: N52.9 Male erectile dysfunction, unspecified (principal); D64.9 Anemia, unspecified; I10 Essential (primary) hypertension
CPT/HCPCS: 36415; 83540; 83550; 84146; 84402; 84403; 85025

== ENCOUNTER 2023-04-14 16:18 | Outpatient (CLI) | payer MEDICARE, SELFPAY ==
--- NOTE | ~2023-04-14 | XR_ITS ---
EXAMINATION: XR thoracic spine 2V DATE: 04/14/2023 16:37 INDICATION: Chronic worsened thoracic back pain. TECHNIQUE: 3 views of thoracic spine were obtained. COMPARISON: Chest 2 views 01/13/2023 FINDINGS: There is 6 degrees dextrocurvature of thoracic spine. Vertebral body heights are normal. In tervertebral disc heights are normal. There are endplate osteophytes at most levels. IMPRESSION: 1. Mild thoracic spondylosis. Reviewed, dictated and finalized at location E.
--- NOTE | ~2023-04-14 | XR_ITS ---
EXAMINATION: XR lumbar spine 2-3V DATE: 04/14/2023 16:37 INDICATION: Dorsalgia, unspecified. TECHNIQUE: 3 views of the lumbar spine were obtained. COMPARISON: CT abdomen and pelvis 11/25/2022 FINDINGS: There is 5 degrees levocurvature of lumbar spine. There is 3 mm retrolisthesis of L3 on L4. Vertebral body heights are normal. There are endplate osteophytes at multiple levels. There is mildl y decreased disc height at L3-L4 and L4-L5. There is multilevel mild to moderate facet joint osteoart hritis. IMPRESSION: 1. Mild lumbar spondylosis. Reviewed, dictated and finalized at location E. IMPRESSION: 1. Mild lumbar spondylosis.
== END 2023-04-14 16:19 | disposition home or self-care (01) ==
LOC: ANHIMG 16:20
PROVIDERS: PCP Internal Medicine; Visit Provider Internal Medicine
DX: M47.894 Other spondylosis, thoracic region (principal); M47.896 Other spondylosis, lumbar region
CPT/HCPCS: 72070; 72100

== ENCOUNTER 2023-04-15 16:20 | Outpatient (CLI) | payer MEDICARE, SELFPAY ==
[2023-04-15 16:51] LABS: Rheumatoid Factor < 12.0 IU/ML (<12)
[2023-04-15 17:20] LABS: Erythrocyte Sedimentation Rate 14 mm/hr (0-20)
== END 2023-04-15 16:21 | disposition home or self-care (01) ==
PROVIDERS: PCP Internal Medicine; Visit Provider Internal Medicine
DX: M79.10 Myalgia, unspecified site (principal)
CPT/HCPCS: 36415; 85652; 86038; 86430

== ENCOUNTER 2023-06-01 01:22 | Day surgery (SDC) | payer MEDICARE, SELFPAY ==
[2023-05-22 11:32] VITALS: BMI 33.5
[2023-06-01 06:23] VITALS: BP 144/107; PULSE 69; RESP 18; TEMP 36.2; O2SAT 96
[2023-06-01] MEDS: LACTATED RINGERS 1,000 ML 150 ML IV CONT (06:31)
--- NOTE | 2023-06-01 07:29 | PM.HPGS ---
History of Present Illness History of Present Illness Consent: Risks, benefits, and alternatives have been discussed and questions answered. Patient agrees to proceed with procedure. Chief complaint: neoplasm screening Narrative: Sean Peraza is a 67 year old male here for first screening colonoscopy Review of Systems Constitutional: Constitutional: Denies headache(s) and Denies weakness Eyes: Eyes: Denies blurry vision ENT: Reports Normal hearing present, Denies headache(s) and Denies neck pain Cardiovascular: Cardiovascular: Denies chest pain and Denies dyspnea Respiratory: Respiratory: Denies dyspnea Gastrointestinal: Gastrointestinal: Reports no additional gastrointestinal complaints Genitourinary: Genitourinary: Denies dysuria Musculoskeletal: Musculoskeletal: Denies neck pain Integumentary/Breasts: Skin/Breast: Denies dry skin Neurologic: Reports Normal hearing present, Denies headache(s) and Denies weakness Psychiatric: Psychiatric: Denies anxiety Endocrine: Endocrine: Denies change in body appearance Hematologic/Lymphatic: Hematologic/Lymphatic: Denies easy bleeding Allergic/Immunologic: Allergic/Immunologic: Denies urticaria PMF Past Medical History Medical History (Updated 06/01/23 @ 07:29 by Juan Carlos Mcfarlane MD) Anxiety BPH (benign prostatic hyperplasia) Colon cancer screening Hypertension Migraine Social History Social History Smoking status: Never smoker Alcohol intake: current Drinks per week: 5 Substance use: never Substance use type: does not use Lack of Transportation: No Lack of Food: Never True Current Housing: I Have Housing Concerned About Future Housing: No Difficulty Paying Gas/Electric Bills: No Difficulty Paying for Meds: No Currently Unemployed: No Education: Master's Degree or Higher Difficulty w/ Childcare or Family Care: No Living arrangements: with family Spiritual care concerns: No Meds Home Medications and Allergies Home Medications Medication Instructions Recorded Confirmed Type hydrochlorothiazide 12.5 mg capsule 12.5 mg PO DAILY 01/28/22 05/26/23 History latanoprost 0.005 % eye drops 1 drp EACH EYE QPM 01/28/22 05/26/23 History losartan 100 mg tablet 100 mg PO DAILY 01/28/22 05/26/23 History tamsulosin 0.4 mg capsule 0.4 mg PO DAILY 01/28/22 05/26/23 History trazodone 100 mg tablet 100 mg PO HS 01/28/22 05/26/23 History venlafaxine 150 mg 150 mg PO QAM 01/28/22 05/26/23 History capsule,extended release 24 hr verapamil 240 mg tablet,extended 240 mg PO QAM 01/28/22 05/26/23 History release albuterol sulfate 90 mcg/actuation 2 inh inhalation Q6-8H PRN 04/14/23 05/26/23 Rx aerosol inhaler (ProAir HFA) shortness of breath or wheezing #8.5 grams fexofenadine 60 mg tablet (Shabnam 60 mg PO QAM 04/14/23 05/26/23 History Allergy) fluticasone propionate 50 1 spray intranasal DAILY 04/14/23 05/26/23 History mcg/actuation nasal spray,suspension (Flonase Allergy Relief) timolol 0.5 % eye drops 1 drp EACH EYE QHS 04/14/23 05/26/23 History meloxicam 15 mg tablet 15 mg PO DAILY #90 tabs 04/23/23 05/26/23 Rx Allergies Allergy/AdvReac Type Severity Reaction Status Date / Time No Known Allergies Allergy Verified 06/01/23 06:18 Vital Signs Vital Signs - 24 hr 06/01/23 06:23 Temperature 97.2 F L Pulse Rate 69 Respiratory Rate 18 Blood Pressure 144/107 H Pulse Oximetry 96 Oxygen Delivery Room Air Exam Const: General: comfortable and no acute distress HENMT: Face/Nose/Sinus: Normal nares present Eyes: General: appearance normal, both eyes and all related structures Neck: Neck: no JVD Resp: Auscultation: clear to auscultation bilaterally Cardio: Rate: regular rate Rhythm: regular rhythm GI: Inspection: non-distended GI Palp: Yes Soft to palpation Skin: General skin exam: normal color Neuro: General:
--- NOTE | 2023-06-01 07:30 | WPDANESEPPF ---
Anes - Initial Pre Proc Eval Procedure: Operation Date: 06/01/23 07:30 Proposed Procedures p Screening Colonoscopy - Juan Carlos Mcfarlane MD Date/Time: 06/01/23 07:30 Surgeon: Juan Carlos Mcfarlane MD Pre Op Diagnosis: neoplasm screening Patient Data Age: 67 Gender: M Height: 1.73 m Weight: 102.2 kg Last Vital Signs Temp 97.2 F L 06/01/23 06:23 Pulse 69 06/01/23 06:23 Resp 18 06/01/23 06:23 BP 144/107 H 06/01/23 06:23 Pulse Ox 96 06/01/23 06:23 O2 Del Method Room Air 06/01/23 06:23 Allergies Allergy/AdvReac Type Severity Reaction Status Date / Time No Known Allergies Allergy Verified 06/01/23 06:18 Home Medications Medication Instructions Recorded Confirmed Type hydrochlorothiazide 12.5 mg capsule 12.5 mg PO DAILY 01/28/22 05/26/23 History latanoprost 0.005 % eye drops 1 drp EACH EYE QPM 01/28/22 05/26/23 History losartan 100 mg tablet 100 mg PO DAILY 01/28/22 05/26/23 History tamsulosin 0.4 mg capsule 0.4 mg PO DAILY 01/28/22 05/26/23 History trazodone 100 mg tablet 100 mg PO HS 01/28/22 05/26/23 History venlafaxine 150 mg 150 mg PO QAM 01/28/22 05/26/23 History capsule,extended release 24 hr verapamil 240 mg tablet,extended 240 mg PO QAM 01/28/22 05/26/23 History release albuterol sulfate 90 mcg/actuation 2 inh inhalation Q6-8H PRN 04/14/23 05/26/23 Rx aerosol inhaler (ProAir HFA) shortness of breath or wheezing #8.5 grams fexofenadine 60 mg tablet (Shabnam 60 mg PO QAM 04/14/23 05/26/23 History Allergy) fluticasone propionate 50 1 spray intranasal DAILY 04/14/23 05/26/23 History mcg/actuation nasal spray,suspension (Flonase Allergy Relief) timolol 0.5 % eye drops 1 drp EACH EYE QHS 04/14/23 05/26/23 History meloxicam 15 mg tablet 15 mg PO DAILY #90 tabs 04/23/23 05/26/23 Rx Patient hx anesthesia problems: none Family hx anesthesia problems: none Results Review: All pre-operative results and documents have been reviewed as part of the pre-operative evaluation. [facility] Past Medical History Medical History (Updated 06/01/23 @ 07:29 by Juan Carlos Mcfarlane MD) Anxiety BPH (benign prostatic hyperplasia) Colon cancer screening Hypertension Migraine Social History Social History Smoking status: Never smoker Alcohol intake: current Drinks per week: 5 Substance use: never Substance use type: does not use Lack of Transportation: No Lack of Food: Never True Current Housing: I Have Housing Concerned About Future Housing: No Difficulty Paying Gas/Electric Bills: No Difficulty Paying for Meds: No Currently Unemployed: No Education: Master's Degree or Higher Difficulty w/ Childcare or Family Care: No Living arrangements: with family Spiritual care concerns: No Anes - Eval Final PreProcedure Day of Procedure 06/01/23 07:30 Patient weight: obese Heart: regular rate and rhythm Lungs: clear to auscultation Airway: Mallampati scale class II Neurological: alert and oriented Last oral intake: >/= 8 hours ASA classification: III Emergent: no Anesthetic plan: proceed Anesthesia type and monitoring: general GIVS and standard monitoring Results Review: All pre-operative results and documents have been reviewed as part of the pre-operative evaluation. Informed Consent: The patient's anesthetic plan and its attendant risks and benefits were discussed with the patient/family/POA. Questions were solicited and answers provided to the satisfaction of the patient/family/POA.
[2023-06-01 07:46] VITALS: BP 117/73; PULSE 64; RESP 17; O2SAT 94
[2023-06-01 07:56] VITALS: BP 143/94; PULSE 67; RESP 15; O2SAT 96
[2023-06-01 08:06] VITALS: BP 159/95; PULSE 72; RESP 20; O2SAT 97
== END 2023-06-01 08:16 | disposition home or self-care (01) ==
PROVIDERS: PCP Internal Medicine; Visit Provider Internal Medicine Gastroenterology
PROC: 0DJD8ZZ Inspection of Lower Intestinal Tract, Via Natural or Artificial Opening Endoscopic (ICD-10-PCS; CPT 45378; principal; 2023-06-01 07:30)
DX: Z12.11 Encounter for screening for malignant neoplasm of colon (principal); D12.5 Benign neoplasm of sigmoid colon; K57.30 Diverticulosis of large intestine without perforation or abscess without bleeding; K64.8 Other hemorrhoids; I10 Essential (primary) hypertension; N40.0 Benign prostatic hyperplasia without lower urinary tract symptoms; F41.9 Anxiety disorder, unspecified; E66.9 Obesity, unspecified; Z68.34 Body mass index [BMI] 34.0-34.9, adult; Z79.51 Long term (current) use of inhaled steroids
CPT/HCPCS: 45380; 88305; J0360; J2704; J7120

== ENCOUNTER 2023-06-15 15:30 | Outpatient (RCR) | payer MEDICARE, SELFPAY ==
--- NOTE | 2023-04-30 14:24 | OPREHPOC ---
Outpatient Therapy Plan of Care This is a Multidisciplinary Plan of Care that may contain components documented by all disciplines (PT, OT, and ST.) PT Problem 1 PT Problem #1 Knowledge Deficit PT Goal 1 Goal 1* indep with HEP 2* use correct body positioning with exercises PT Problem 2 PT Problem #2 Impaired Range of Motion PT Goal 1 Goal hamstring length with supine SLR: 1* R 70' 2* L 70' anterior hip-quad length with prone knee flexion 3* R 130' 4* L 140' 5* with supine piriformis stretch, report R=L tightness PT Problem 3 PT Problem #3 Pain PT Goal 1 Goal 1* pt report pain at worst of 4/10 2* pt report times of NO pain 3* pt report sitting 30 minutes without pain increase 4* pt report able to golf 18 holes PT Problem 4 PT Problem #4 Impaired Strength PT Goal 1 Goal 1* pt perform 20 reps of trunk and hip strengthening exercises on mat and standing with good stability
--- NOTE | 2023-04-30 14:24 | PTOPEVAL1 ---
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 His history includes back pain, but was intermittent, now is constant, with limited sitting tolerance and ability to golf. He is doing his usual tasks with increase pain. Xray report was positive for bony changes. With the evaluation: slightly rounded trunk posture in standing; pain increase with motions of prone on elbows and supine L hamstring stretch; tightness over R and L hamstrings & hip IR, R anterior hip-quad muscles and supine L piriformis; decrease trunk stability and strength; spasms throughout thoracic and lumbar paraspinals, with thoracic flexion.
--- NOTE | 2023-04-30 15:43 | PCPTNOTE ---
pt reports he will be out of town May 11 to ;
--- NOTE | 2023-05-28 16:05 | PCPTNOTE ---
Pt cancelled due to performing surgery.
--- NOTE | 2023-06-15 16:20 | PTOPDC ---
Assessment and note entered by Olivia Morales, PT Evaluation Information Assessment Status Discharge Diagnosis back pain Onset December 2022 Subjective Information was able to play 18 holes of golf, 2x over the weekend and feeling good; have been walking and doing the exercises 2x/day; much better than when first started therapy; Reported Pain Level Pain Score Self Report Additional Pain Score Comments pain range past few days: 1-3 /10 in low back; increase pain: when first awaken in AM;sitting- after about 30 min, more pain and stiff with getting up; doing surgery--standing and leaning; decrease pain: stretch, change positions, hot shower; have home stim unit- not used lately, feeling better; walking does not cause any problems---is not limited reinforced with pt: pain management techniques: change positions frequently, use stretching and mobility to manage his pain; also home stim unit and heat PRN. 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 Compared to the initial evaluation: pain at the worst rating was 7 and now 3/10 and low rating same at 1/10; reported increase in activity level -- returned to golfing 18 holes and able to tolerate sitting for 30 minutes; increase flexibility of hamstrings, piriformis and anterior hip-quad muscles; increase strength of trunk and hips; Education completed for home exercise program The goals were achieved. Discharge PT services. He is to continue with his home exercises and monitoring his posture and back position. Plan of Care PT Services Indicated No
== END 2023-06-18 13:21 | disposition home or self-care (01) ==
LOC: ANHPT 15:30
PROVIDERS: PCP Internal Medicine; Visit Provider Internal Medicine
DX: M54.50 Low back pain, unspecified (principal)
CPT/HCPCS: 97014; 97110; 97161; 97530; G0283

== ENCOUNTER 2023-10-26 08:17 | Emergency (ER) | payer MEDICARE, SELFPAY ==
--- NOTE | ~2023-10-26 | XR_ITS ---
XR ankle RT min 3V 10/26/2023 08:39 Indication: Right ankle pain after fall Procedure: 4 views right ankle Comparison: No prior studies for comparison. Findings: There is an oblique mildly displaced distal fibular fracture. Ankle mortise intact. Small d egenerative calcaneal enthesophyte. Talar dome is unremarkable. Impression: 1: Oblique mildly displaced distal fibular fracture with associated soft tissue swelling. Reviewed, dictated and finalized at location B. TO DOOR SELLING DISTRIBUTOR Impression: 1: Oblique mildly displaced distal fibular fracture with associated soft tissue swelling.
[2023-10-26 08:21] VITALS: BP 167/98; PULSE 72; RESP 16; TEMP 36.6; O2SAT 99
--- NOTE | 2023-10-26 08:46 | ED.GENADULT ---
HPI - General Adult General Chief complaint: Extremity Injury, Lower Stated complaint: right ankle injury Time Seen by Provider: 10/26/23 08:40 68-year-old male presenting to the emergency department for evaluation after having a ground level fall. Patient was walking outside in his driveway slipped on the ice and injured his right ankle. Patient denies striking his head denies loss conscious. Patient's only complaint is the right lateral ankle Related Data Home Medications Medication Instructions Recorded Confirmed hydrochlorothiazide 12.5 mg capsule 12.5 mg PO DAILY 01/28/22 05/26/23 latanoprost 0.005 % eye drops 1 drp EACH EYE QPM 01/28/22 05/26/23 tamsulosin 0.4 mg capsule 0.4 mg PO DAILY 01/28/22 05/26/23 venlafaxine 150 mg 150 mg PO QAM 01/28/22 05/26/23 capsule,extended release 24 hr fexofenadine 60 mg tablet (Shabnam 60 mg PO QAM 04/14/23 05/26/23 Allergy) fluticasone propionate 50 1 spray intranasal DAILY 04/14/23 05/26/23 mcg/actuation nasal spray,suspension (Flonase Allergy Relief) timolol 0.5 % eye drops 1 drp EACH EYE QHS 04/14/23 05/26/23 Allergies Allergy/AdvReac Type Severity Reaction Status Date / Time No Known Allergies Allergy Verified 10/26/23 08:43 Review of Systems Review of Systems: All systems reviewed & are unremarkable except as noted in HPI and below PMFSH Past Medical History Medical History (Updated 10/26/23 @ 08:50 by Emanuel Gonsalves MD) Anxiety BPH (benign prostatic hyperplasia) Colon cancer screening Hypertension Migraine Social History Social History Smoking status: Never smoker Alcohol intake: current Drinks per week: 5 Substance use: never Substance use type: does not use Lack of Transportation: No Lack of Food: Never True Current Housing: I Have Housing Concerned About Future Housing: No Difficulty Paying Gas/Electric Bills: No Difficulty Paying for Meds: No Currently Unemployed: No Education: Master's Degree or Higher Difficulty w/ Childcare or Family Care: No Living arrangements: with family Spiritual care concerns: No Exam Narrative: APPEARANCE: Well appearing, no pain, no distress, well-nourished. HEAD: normocephalic, atraumatic. EYES: PERRLA/EOMI, conjunctivae clear. NOSE: Normal no drainage NECK: Supple. No adenopathy, no masses. RESPIRATORY: Airway patent, respirations nonlabored. Clear to auscultation bilaterally, no rales, rhonchi, wheezing. CARDIOVASCULAR: Regular rate and rhythm without murmurs rubs or gallops. ABDOMINAL: Soft, nontender, nondistended, normal bowel sounds MUSCULOSKELETAL: Lateral right ankle tenderness, neurovascularly intact NEURO: Alert. Cranial nerves II through XII intact. Good gait. Good coordination SKIN: Warm, dry. Normal Color Grossly in Course Course Emergency Course: 68-year-old male presenting to the emergency department for evaluation of injury to his right ankle. X-ray showed mildly displaced distal fibular fracture with associated soft tissue swelling. Patient denies any other pain or injury. Patient was splinted provided crutches for limited weight-bearing. All questions concerns were addressed patient was comfortable the plan for discharge and close follow-up with Orthopedics. Vital Signs Vital signs: Vital Signs Temperature 97.8 F 10/26/23 08:21 Pulse Rate 72 10/26/23 08:21 Respiratory Rate 16 10/26/23 08:21 Blood Pressure 167/98 H 10/26/23 08:21 Pulse Oximetry 99 10/26/23 08:21 Oxygen Delivery Room Air 10/26/23 08:21 Temperature 97.8 F 10/26/23 08:21 Pulse Rate 72 10/26/23 08:21 Respiratory Rate 16 10/26/23 08:21 Blood Pressure 167/98 H 10/26/23 08:21 Pulse Oximetry 99 10/26/23 08:21 Oxygen Delivery Room Air 10/26/23 08:21 Medical Decision Making Differential Diagnosis Differential Diagnosis: Ankle fracture, ankle dislocation, proximal tib fracture
[2023-10-26] MEDS: MORPHINE SULFATE (*CRX) 4 MG/ML INJ IV PUSH (08:55)
== END 2023-10-26 09:42 | disposition home or self-care (01) ==
LOC: ANHED 09:15
PROVIDERS: Emergency Provider Emergency Medicine; PCP Internal Medicine
DX: S82.831A Other fracture of upper and lower end of right fibula, initial encounter for closed fracture (principal); I10 Essential (primary) hypertension; N40.0 Benign prostatic hyperplasia without lower urinary tract symptoms; F41.9 Anxiety disorder, unspecified; W00.0XXA Fall on same level due to ice and snow, initial encounter
CPT/HCPCS: 29515; 73610; 96374; 99284; J2270

== ENCOUNTER 2023-10-29 01:00 | Day surgery (SDC) | payer MEDICARE, SELFPAY ==
--- NOTE | 2023-10-28 13:15 | PC.NURSE ---
Report to the Outpatient Waiting Room, entrance under the green pavilion located off [facility], at time __1130 on date _10/29/23 . Planned Procedure Time: __1330 . Time changes happen often and if your time is changed the preop area will call you the afternoon before. - You and your visitor will be asked to self-screen and do not enter if you have any COVID symptoms. - A mask is optional within the hospital at this time. Patients may have clear liquids (water, carbonated beverages, clear teas, apple juice) until 3 hours prior to surgery with a maximum of 20 ounces. - No food from midnight until time of surgery - Infants may have breast milk until 4 hours before surgery, infant formula 6 hours prior to surgery. - Children will be allowed to drink immediately following surgery. If applicable, please bring a bottle or sippy cup to assist with drinking. Juice, water, soda, and popsicles are readily available. For infants on formula, please bring formula the day of surgery. Pacifiers are allowed. Take the following medications with a SIP of water the morning of surgery: ___BUPROPION,TIMOLOL EYE DROP,VENLAFAXINE,VERAPAMIL,HYDROCODONE IF NEEDED FOR PAIN DO NOT STOP ANY OF YOUR OTHER PRESCRIPTION MEDICATIONS PRIOR TO SURGERY ?EXCEPT THE FOLLOWING Medications to discontinue per physician Date to take last dose Please no make-up, nail lithuanian, hairspray, perfume, deodorant, or body powder the day of surgery. No jewelry (including any body piercings) or valuables the day of surgery, leave them at home. Please take a shower or bath the night before, or the morning of, surgery with an antibacterial soap. Wear comfortable, loose fitting clothing. Children are encouraged to wear pajamas. - Jewelry must be removed prior to entering the operating room. Rings and piercings that are not removed may be cut off. - The hospital will not accept responsibility for valuables. - Please leave all valuables, including medications, at home the day of surgery. If you are going home after surgery, a licensed truck driver rubbish collector must drive you home. - NO public transportation without another adult if you receive anesthesia. - We recommend that an adult stay with you for 24 hours following discharge. - We also recommend that you do not drive, make important decision, drink alcoholic beverages, or take any drugs that were not prescribed by your health care provider for at least 24 hours after your discharge time. Follow any additional instructions given to you from your surgeon. If you or anyone in your household have experienced Covid symptoms in the past week, please notify your surgeon or the nurse liaison at the phone number below for possible testing. Telephone instructions given to ___PATIENT and asked if any additional questions and then verbalized understanding. Patient advised to call surgeon office or pre surgery nurse liaison [phone] if any additional questions.
[2023-10-28 13:20] VITALS: BMI 31.1
--- NOTE | 2023-10-28 13:38 | WPDANESEPPF ---
Anes - Initial Pre Proc Eval Procedure: Operation Date: 10/29/23 13:30 Proposed Procedures p Open Reduction Internal Fixation Right Lateral Malleolar Ankle Fracture - Anderson Booker MD Date/Time: 10/28/23 13:38 Surgeon: Anderson Booker MD Pre Op Diagnosis: right ankle fx Patient Data Age: 68 Gender: M Height: 1.73 m Weight: 92.99 kg Allergies Allergy/AdvReac Type Severity Reaction Status Date / Time No Known Allergies Allergy Verified 10/28/23 13:06 Home Medications Medication Instructions Recorded Confirmed Type hydrochlorothiazide 12.5 mg capsule 12.5 mg PO DAILY 01/28/22 10/28/23 History latanoprost 0.005 % eye drops 1 drp EACH EYE QPM 01/28/22 10/28/23 History tamsulosin 0.4 mg capsule 0.4 mg PO DAILY 01/28/22 10/28/23 History venlafaxine 150 mg 150 mg PO QAM 01/28/22 10/28/23 History capsule,extended release 24 hr fexofenadine 60 mg tablet (Shabnam 60 mg PO PRN PRN Allergy Symptoms 04/14/23 10/28/23 History Allergy) fluticasone propionate 50 1 spray intranasal PRN PRN Allergy 04/14/23 10/28/23 History mcg/actuation nasal Symptoms spray,suspension (Flonase Allergy Relief) timolol 0.5 % eye drops 1 drp EACH EYE DAILY 04/14/23 10/28/23 History trazodone 100 mg tablet See Rx Instructions .Route 06/29/23 10/28/23 Rx .COMPLEX #90 tabs verapamil 240 mg 24 hr See Rx Instructions .Route 06/29/23 10/28/23 Rx capsule,extended release .COMPLEX #90 caps losartan 100 mg tablet See Rx Instructions .Route 08/24/23 10/28/23 Rx .COMPLEX #90 tabs hydrocodone 5 mg-acetaminophen 325 1 tablet PO Q8H PRN pain #20 tabs 10/26/23 10/28/23 Rx mg tablet bupropion HCl 300 mg 24 hr tablet, 300 mg PO DAILY 10/28/23 10/28/23 History extended release multivitamin 1 tablet PO DAILY 10/28/23 10/28/23 History oxycodone-acetaminophen 5 mg-325 1 - 2 tablet PO Q4-6H PRN pain #30 10/29/23 Rx mg tablet tabs Patient hx anesthesia problems: none Family hx anesthesia problems: none Results Review: All pre-operative results and documents have been reviewed as part of the pre-operative evaluation. [facility] Past Medical History Medical History (Updated 10/29/23 @ 08:00 by IAN Luna) Anxiety BPH (benign prostatic hyperplasia) Colon cancer screening Diastolic dysfunction Glaucoma Hypertension Migraine Surgical History Surgical History (Updated 10/28/23 @ 13:39 by Gustavo Mast DO) History of appendectomy Social History Social History Smoking status: Never smoker Alcohol intake: current Drinks per week: 5 Substance use: never Substance use type: does not use Lack of Transportation: No Lack of Food: Never True Current Housing: I Have Housing Concerned About Future Housing: No Difficulty Paying Gas/Electric Bills: No Difficulty Paying for Meds: No Currently Unemployed: No Education: Master's Degree or Higher Difficulty w/ Childcare or Family Care: No Living arrangements: with family Spiritual care concerns: No Anes - Eval Final PreProcedure Day of Procedure 10/28/23 13:38 Patient weight: obese Heart: regular rate and rhythm Lungs: clear to auscultation Airway: Mallampati scale class II Neurological: alert and oriented Last oral intake: >/= 8 hours ASA classification: III Emergent: no Anesthetic plan: proceed Anesthesia type and monitoring: general GIVS and standard monitoring Results Review: All pre-operative results and documents have been reviewed as part of the pre-operative evaluation. Informed Consent: The patient's anesthetic plan and its attendant risks and benefits were discussed with the patient/family/POA. Questions were solicited and answers provided to the satisfaction of the patient/family/POA.
[2023-10-29] VITALS (7 sets, daily range): BP systolic 137–163; BP diastolic 74–89; PULSE 67–73; RESP 14–15; TEMP 36.1–36.6; O2SAT 94–100
--- NOTE | ~2023-10-29 | XR_ITS ---
EXAMINATION: XR surgery orthopedic DATE: 10/29/2023 14:27 INDICATION: ORIF right ankle fracture TECHNIQUE: 4 fluoroscopic images of the right ankle were obtained during procedure performed by Dr. Bere palacios. Radiologist was not present for the imaging or procedure. The amount of fluoroscopy time u sed during this procedure was 0.6 minutes. COMPARISON: 10/26/2023 FINDINGS: Interval reduction and lateral plate and screw fixation of the previous noted oblique lateral malleol ar fracture which is now nondisplaced in near-anatomic alignment. No other fractures identified. Join t spaces are normal with congruent ankle mortise. IMPRESSION: 1. Near-anatomic alignment post open reduction internal fixation of an oblique fracture of the latera l malleolus. Reviewed, dictated and finalized at location A. GER INVENTORY MANAGEMENT IMPRESSION: 1. Near-anatomic alignment post open reduction internal fixation of an oblique fracture of the lateral malleolus.
--- NOTE | 2023-10-29 10:22 | ECG_ITS ---
Measurements Intervals [place] Rate: 70 P: 23 NV: 208 QRS: -16 QRSD: 112 T: 25 QT: 417 QTc: 452 Interpretive Statements SINUS RHYTHM INTRAVENTRICULAR CONDUCTION DELAY BORDERLINE ECG COMPARED TO ECG 01/29/2022 09:15:47 INTRAVENTRICULAR CONDUCTION DELAY NOW PRESENT Electronically Signed On 10-29-2023 11:53:30 [employer]ANCER [employer]ALE by Damian Urrutia D.O.
[2023-10-29 12:13] LABS: Anion Gap 5 mmol/L (8-16); Blood Urea Nitrogen 23 mg/dL (9-20); Calcium 9.3 mg/dL (8.4-10.2); Carbon Dioxide 29 mmol/L (22-30); Chloride 104 mmol/L (98-107); Estimated CRCL calculation 78 ml/min; Estimated Glomerular Filt Rate > 60; Glucose 93 mg/dL (65-110); Potassium 4.1 mmol/L (3.4-5.0); Sodium 138 mmol/L (137-145)
[2023-10-29] MEDS: ACETAMINOPHEN 500 MG TABLET 1000 MG PO (12:40)
[2023-10-29] MEDS: KETOROLAC 15 MG/ML VIAL (*BKC) IV PUSH (12:40)
[2023-10-29] MEDS: LACTATED RINGERS 1,000 ML 30 ML IV CONT ×2 (12:40→14:48)
--- NOTE | 2023-10-29 12:43 | PM.IMHP ---
H&P: HPI History of Present Illness Date/Time: 10/29/23 12:43 Chief Complaint: Right ankle fracture. Narrative: Patient complains of lateral ankle pain after slipping on the ice. Treated with a splint in the emergency department. No other associated injuries. Review of Systems Review of Systems: All systems reviewed & are unremarkable except as noted in HPI and below PMFSH Past Medical History Medical History Anxiety BPH (benign prostatic hyperplasia) Colon cancer screening Diastolic dysfunction Glaucoma Hypertension Migraine Surgical History Surgical History History of appendectomy Social History Social History Smoking status: Never smoker Alcohol intake: current Drinks per week: 5 Substance use: never Substance use type: does not use Lack of Transportation: No Lack of Food: Never True Current Housing: I Have Housing Concerned About Future Housing: No Difficulty Paying Gas/Electric Bills: No Difficulty Paying for Meds: No Currently Unemployed: No Education: Master's Degree or Higher Difficulty w/ Childcare or Family Care: No Living arrangements: with family Spiritual care concerns: No Meds Home Medications and Allergies Home Medications Medication Instructions Recorded Confirmed Type hydrochlorothiazide 12.5 mg capsule 12.5 mg PO DAILY 01/28/22 10/28/23 History latanoprost 0.005 % eye drops 1 drp EACH EYE QPM 01/28/22 10/28/23 History tamsulosin 0.4 mg capsule 0.4 mg PO DAILY 01/28/22 10/28/23 History venlafaxine 150 mg 150 mg PO QAM 01/28/22 10/28/23 History capsule,extended release 24 hr fexofenadine 60 mg tablet (Shabnam 60 mg PO PRN PRN Allergy Symptoms 04/14/23 10/28/23 History Allergy) fluticasone propionate 50 1 spray intranasal PRN PRN Allergy 04/14/23 10/28/23 History mcg/actuation nasal Symptoms spray,suspension (Flonase Allergy Relief) timolol 0.5 % eye drops 1 drp EACH EYE DAILY 04/14/23 10/28/23 History trazodone 100 mg tablet See Rx Instructions .Route 06/29/23 10/28/23 Rx .COMPLEX #90 tabs verapamil 240 mg 24 hr See Rx Instructions .Route 06/29/23 10/28/23 Rx capsule,extended release .COMPLEX #90 caps losartan 100 mg tablet See Rx Instructions .Route 08/24/23 10/28/23 Rx .COMPLEX #90 tabs hydrocodone 5 mg-acetaminophen 325 1 tablet PO Q8H PRN pain #20 tabs 10/26/23 10/28/23 Rx mg tablet bupropion HCl 300 mg 24 hr tablet, 300 mg PO DAILY 10/28/23 10/28/23 History extended release multivitamin 1 tablet PO DAILY 10/28/23 10/28/23 History oxycodone-acetaminophen 5 mg-325 1 - 2 tablet PO Q4-6H PRN pain #30 10/29/23 Rx mg tablet tabs Allergies Allergy/AdvReac Type Severity Reaction Status Date / Time No Known Allergies Allergy Verified 10/28/23 13:06 Exam Narrative: Appears healthy. No distress. Alert and oriented. ? Ankle shows mild lateral swelling and ecchymosis.? Moderate tenderness at the lateral malleolus.? Deltoid ligament non tender. No other deformity. Hindfoot and forefoot are otherwise normal. Light touch sensation intact.? Brief capillary refill.? No skin lacerations or other lesions.? No abnormal callosities. ? Knee within normal limits.? No edema.? No calf tenderness.? Contralateral foot plantigrade without abnormalities. H&P: Results Labs Labs: [facility] 10/29/23 11:56 Sodium 138 Potassium 4.1 Chloride 104 Carbon Dioxide 29 BUN 23 H Creatinine 0.90 Glucose 93 Calcium 9.3 Assessment and Plan Assessment and plan (1) Fracture of lateral malleolus of right ankle: Qualifiers: Encounter type: initial encounter Fracture type: closed Fracture alignment: displaced Qualified Code(s): S82.61XA - Displaced fracture of lateral malleolus of right fibula, initial encounter for closed fracture
--- NOTE | 2023-10-29 12:51 | WPDHPUPDATE1 ---
History and Physical Update Update Date/Time: 10/29/23 12:51 History and Physical has been reviewed, including an updated exam of the patient. There are NO changes in the patient's condition. Risks, benefits, and alternatives have been discussed and questions answered. Patient agrees to proceed with procedure.
[2023-10-29] MEDS: ceFAZolin 2 GM/D5W 50 ML 2 GM/50 ML BAG IVPB (12:56)
[2023-10-29] MEDS: BUPIVACAINE/EPINEPHRINE 0.5% 30 ML VIAL 20 ML INFILTRATE (14:22)
--- NOTE | 2023-10-29 14:59 | W.PM.PROC2 ---
Procedure Note - Detailed Date of Procedure 10/29/23 Pre-op Diagnosis Right ankle lateral malleolus fracture. Mildly displaced. Post-op Diagnosis Same Procedure Performed ORIF lateral malleolus, right ankle. Surgeon Anderson Booker MD Anesthesia General Findings Intervening soft tissue with moderate displacement. Mild comminution and osteopenia. Description of Procedure A general anesthetic was administered. The limb was prepped and draped in the usual sterile fashion with a well-padded tourniquet high on the thigh. A bump was placed under the hip. The limb was exsanguinated and the tourniquet inflated to 275 millimeters of mercury during the procedure. A longitudinal incision was created at the distal fibula. Careful dissection was carried down to bone. Perineal nerve branches were protected. The fracture was carefully exposed. Callus and debris was irrigated from the wound. The fracture was brought out to length. Reduction was accomplished with the reduction forceps. The fixation plate fit anatomically without contouring. Fixation was performed with a combination of cortical and cancellous screws. Three distal locking screws in the very distal fragment. One locking screw was used in the proximal aspect of the plate. Fluoroscopy was used throughout the procedure to confirm anatomic reduction and appropriate placement of the implants. The tourniquet was released. Meticulous hemostasis was obtained. Wound was closed in layers with 2-0 Vicryl suture 3-0 Monocryl suture and shaan. A sterile dressing with well padded splint was applied. The patient was extubated and brought to the recovery room in stable condition. There were no complications. Implants Arthrex anatomic distal fibular plate. Multiple nonlocking and locking screws. Estimated Blood Loss 10 Tourniquet Time Total Tourniquet Time: 38 Urine Output 250 Pathology None sent Complications No immediate complications Condition Stable Disposition PACU [facility] Billing Surgery - Charge Forward: Surgery Billing
== END 2023-10-29 16:44 | disposition home or self-care (01) ==
PROVIDERS: Anesthesiology; PCP Internal Medicine; Visit Provider Orthopaedic Surgery
PROC: (CPT 27792; principal; 2023-10-29 13:30)
DX: S82.61XA Displaced fracture of lateral malleolus of right fibula, initial encounter for closed fracture (principal); M85.871 Other specified disorders of bone density and structure, right ankle and foot; F41.9 Anxiety disorder, unspecified; I11.9 Hypertensive heart disease without heart failure; N40.0 Benign prostatic hyperplasia without lower urinary tract symptoms; E66.9 Obesity, unspecified; Z68.31 Body mass index [BMI] 31.0-31.9, adult; W00.0XXA Fall on same level due to ice and snow, initial encounter; Z79.891 Long term (current) use of opiate analgesic; Z98.890 Other specified postprocedural states; Z86.79 Personal history of other diseases of the circulatory system
CPT/HCPCS: 27792; 36415; 80048; 93005; 99199; A9270; C1713; J0690; J1100; J1885; J2250; J2405; J2704; J3010; J7120

== ENCOUNTER 2023-11-12 13:00 | Outpatient (CLI) | payer MEDICARE, SELFPAY ==
--- NOTE | ~2023-11-12 | XR_ITS ---
EXAMINATION: XR ankle RT min 3V DATE: 11/12/2023 13:23 INDICATION: Displaced fracture of lateral malleolus. TECHNIQUE: 4 views of right ankle were obtained. COMPARISON: Right ankle radiographs 10/26/2023, fluoroscopy 10/29/2023 FINDINGS: There is an oblique fracture of distal fibula in near-anatomic alignment status post open r eduction internal fixation with lateral plate and screws. Joint spaces are normal. There is an enthes ophyte at plantar aspect of calcaneal tuberosity. IMPRESSION: 1. Oblique fracture of distal fibula in near-anatomic alignment status post open reduction internal f ixation. Reviewed, dictated and finalized at location E. ERY FILLER IMPRESSION: 1. Oblique fracture of distal fibula in near-anatomic alignment status post ope n reduction internal fixation.
== END 2023-11-12 13:01 | disposition home or self-care (01) ==
LOC: ANHIMG 13:02
PROVIDERS: PCP Internal Medicine; Visit Provider Orthopaedic Surgery
DX: S82.61XA Displaced fracture of lateral malleolus of right fibula, initial encounter for closed fracture (principal); Z98.890 Other specified postprocedural states
CPT/HCPCS: 73610

== ENCOUNTER 2023-11-26 08:15 | Outpatient (CLI) | payer MEDICARE, SELFPAY ==
--- NOTE | ~2023-11-26 | XR_ITS ---
Right ankle Technique: AP, oblique, and lateral views were obtained. Clinical History: Fracture follow-up COMPARISON: 11/12/2023 Findings: Patient is status post ORIF of the distal fibula/lateral malleolus. Fracture appears to be essentially completely healed. No other fracture or dislocation seen. Ankle mortise and other visuali zed joint spaces are preserved. Soft tissues are otherwise unremarkable. Impression: Prior ORIF of the lateral malleolus/distal fibula. Reviewed, dictated and finalized at location M. CTOR OF SPECIAL SERVICES Impression: Prior ORIF of the lateral malleolus/distal fibula.
== END 2023-11-26 08:16 | disposition home or self-care (01) ==
PROVIDERS: PCP Internal Medicine; Visit Provider Orthopaedic Surgery
DX: S82.61XA Displaced fracture of lateral malleolus of right fibula, initial encounter for closed fracture (principal); X58.XXXA Exposure to other specified factors, initial encounter; Z96.698 Presence of other orthopedic joint implants
CPT/HCPCS: 73610

== ENCOUNTER 2024-07-12 07:32 | Outpatient (CLI) | payer MEDICARE, SELFPAY ==
--- NOTE | ~2024-07-12 | US_ITS ---
US renal BI 07/12/2024 08:32 Procedure: Realtime transabdominal ultrasound of the kidneys and bladder. Indication: Hypertension Comparison: CT dated 11/25/2022 Findings: There is medullary shadowing of the right kidney without discrete echogenic foci. Nonobstru cting stones cannot be excluded. No significant hydronephrosis. Left renal echotexture is unremarkabl e without focal mass or hydronephrosis. No contour deforming mass or renal calculus. The right kidney measures 11 cm and left kidney measures 10.8 cm. Bladder within normal limits. Impression: 1: Right renal medullary shadowing, nonspecific. Cannot exclude underlying stones. Consider correlati on with CT. Reviewed, dictated and finalized at location B. Impression: 1: Right renal medullary shadowing, nonspecific. Cannot exclude underlying ston es. Consider correlation with CT.
[2024-07-12 08:09] LABS: Anion Gap 8 mmol/L (4-12); Blood Urea Nitrogen 26 mg/dL (9-20); Carbon Dioxide 26 mmol/L (22-30); Chloride 105 mmol/L (98-107); Estimated Glomerular Filt Rate > 60; Glucose 104 mg/dL (65-110); Sodium 139 mmol/L (137-145)
[2024-07-17 12:28] LABS: PRA 15.59 ng/mL/h (0.25-5.82)
[2024-07-19 13:19] LABS: Testosterone Free 47.7 pg/mL (35.0-155.0); Testosterone Total 261 ng/dL (250-1100)
== END 2024-07-12 07:33 | disposition home or self-care (01) ==
PROVIDERS: PCP Internal Medicine; Visit Provider Internal Medicine
DX: R79.89 Other specified abnormal findings of blood chemistry (principal); I10 Essential (primary) hypertension
CPT/HCPCS: 36415; 76775; 80048; 82088; 84244; 84402; 84403

== ENCOUNTER 2024-11-11 08:06 | Outpatient (CLI) | payer MEDICARE, SELFPAY ==
--- OUTSIDE RECORDS SUMMARY | 2024-11-11 08:11 | XMS_ITS | CONTINUITY OF CARE DOCUMENT ---
Author Name kaushik faulkner Address Unknown Organization [facility] Address [address] [place] [address] [address] [place] [address] Phone [phone] Care Team Providers Care Brine Tank Separator Operator Name Role Phone kaushik faulkner Unavailable Unavailable
--- NOTE | 2024-11-11 08:46 | EST_ITS ---
Patient Info Name: Sean Peraza Age: 69 years : 1955 Gender: Male Ht: 58 in Wt: 210 lbs BSA: 2.04 m2 Technical Quality: Good Exam Date: 11/11/2024 9:36 AM Exam Location: Echo Lab Patient Status: Outpatient Admit Date: 11/11/2024 Staff Ordering Physician: Héctor Steele DO Head Bone Grinder: Aixa Campos RDCS Attending Provider: Héctor Steele DO Referring Physician: Ivette CASTILLO; Exercise Technologist: Marie Caballero RDCS Nurse: Radha Young APN Exam Type: CA stress echo Study Info Indications R06.09 - Other forms of dyspnea Treadmill exercise stress echocardiogram is performed. Summary 1. Good functional capacity, achieving 10.3 METs of workload. 2. No arrhythmias were observed during the examination. 3. No abnormal ST/T wave changes diagnostic of ischemia with exercise, however, target heart rate was not achieved. 4. Negative stress echocardiogram for ischemia, however, target heart rate was not achieved. Stress Echo Findings Left Ventricle Normal augmentation of all wall segments without evidence of ischemia with stress. Protocol: Farzad Stress ECG Details Stage: REST Duration (min): 1 min : 49 sec Speed (mph): 0.0 Grade (%): 0 HR (bpm): 63 SBP (mmHg): 138 DBP (mmHg): 75 METS: --- Stage: REST Duration (min): 10 min : 38 sec Speed (mph): 0.0 Grade (%): 0 HR (bpm): 69 SBP (mmHg): 138 DBP (mmHg): 75 METS: --- Stage: STAGE 1 Duration (min): 1 min : 0 sec Speed (mph): 1.7 Grade (%): 10 HR (bpm): 79 SBP (mmHg): 138 DBP (mmHg): 75 METS: --- Stage: STAGE 1 Duration (min): 2 min : 0 sec Speed (mph): 1.7 Grade (%): 10 HR (bpm): 81 SBP (mmHg): 138 DBP (mmHg): 75 METS: --- Stage: STAGE 1 Duration (min): 3 min : 0 sec Speed (mph): 1.7 Grade (%): 10 HR (bpm): 84 SBP (mmHg): 138 DBP (mmHg): 75 METS: --- Stage: STAGE 2 Duration (min): 1 min : 0 sec Speed (mph): 2.5 Grade (%): 12 HR (bpm): 87 SBP (mmHg): 138 DBP (mmHg): 75 METS: --- Stage: STAGE 2 Duration (min): 2 min : 0 sec Speed (mph): 2.5 Grade (%): 12 HR (bpm): 89 SBP (mmHg): 140 DBP (mmHg): 68 METS: --- Stage: STAGE 2 Duration (min): 3 min : 0 sec Speed (mph): 2.5 Grade (%): 12 HR (bpm): 93 SBP (mmHg): 140 DBP (mmHg): 68 METS: --- Stage: STAGE 3 Duration (min): 1 min : 0 sec Speed (mph): 3.4 Grade (%): 14 HR (bpm): 96 SBP (mmHg): 157 DBP (mmHg): 71 METS: --- Stage: STAGE 3 Duration (min): 2 min : 0 sec Speed (mph): 3.4 Grade (%): 14 HR (bpm): 100 SBP (mmHg): 157 DBP (mmHg): 71 METS: --- Stage: STAGE 3 Duration (min): 2 min : 7 sec Speed (mph): 3.4 Grade (%): 14 HR (bpm): 100 SBP (mmHg): 157 DBP (mmHg): 71 METS: --- Stage: RECOVERY Duration (min): 0 min : 52 sec Speed (mph): 0.0 Grade (%): 0 HR (bpm): 89 SBP (mmHg): 146 DBP (mmHg): 57 METS: --- Stage: RECOVERY Duration (min): 1 min : 52 sec Speed (mph): 0.0 Grade (%): 0 HR (bpm): 78 SBP (mmHg): 146 DBP (mmHg): 57 METS: --- Stage: RECOVERY Duration (min): 2 min : 52 sec Speed (mph): 0.0 Grade (%): 0 HR (bpm): 69 SBP (mmHg): 146 DBP (mmHg): 57 METS: --- Stage: RECOVERY Duration (min): 3 min : 29 sec Speed (mph): 0.0 Grade (%): 0 HR (bpm): 66 SBP (mmHg): 180 DBP (mmHg): 71 METS: --- Rest HR: 69 bpm Peak HR: 100 bpm Rest Sys BP: 138 mmHg Peak Sys BP: 180 mmHg Max Pred HR: 153 bpm % Max Pred HR: 65 % Target HR: 130 bpm Max RPP: 18,000 bpm*mmHg Meraz Score: 6 Termination Reason: Dyspnea Max ST Seg Deviation: -0.40 mm Total Time: 8 min : 7 sec Rest Mcmillan BP: 75 mmHg Peak Mcmillan BP: 71 mmHg Angina Score: None Total METS: 10.3 Resting ECG Sinus rhythm. Stress ECG Sinus tachycardia. No abnormal ST/T wave changes diagnostic of ischemia with exercise, however, target heart rate was not achieved. Arrhythmias No arrhythmias were observed during the examination. Report Signatures Stress ECG Echo
== END 2024-11-11 08:07 | disposition home or self-care (01) ==
LOC: ANHCARD 08:07
PROVIDERS: PCP Internal Medicine; Visit Provider Internal Medicine
DX: R06.09 Other forms of dyspnea (principal)
CPT/HCPCS: 93351

== ENCOUNTER 2025-02-10 07:03 | Outpatient (CLI) | payer MEDICARE, SELFPAY ==
--- NOTE | ~2025-02-10 | CT_ITS ---
Non-contrast CT scan of the Abdomen Clinical indication: Abnormal radiographic findings Technique: 2.5 mm axial scans were obtained through the abdomen without intravenous or oral contrast . Dose reduction technique was used on this scan by utilizing automated exposure control and iterativ e reconstruction technique. The dose-length product (DLP) was 751.87 mGy-cm. COMPARISON: 11/25/2022 Findings: Images through the lung bases reveal no abnormalities. There is no evidence of renal or ureteral calculi. The kidneys and the ureters are nondilated. Small right renal cyst present. The liver, spleen, pancreas, gallbladder, and adrenals appear normal. There are atherosclerotic calci fications of the aorta. . Visualized bowel loops are unremarkable. No ascites. Impression: Small right renal cyst. No significant renal abnormality seen. Reviewed, dictated and finalized at [facility]. Impression: Small right renal cyst. No significant renal abnormality seen.
--- OUTSIDE RECORDS SUMMARY | 2025-02-10 07:06 | XMS_ITS | CONTINUITY OF CARE DOCUMENT ---
Author Name kaushik faulkner Address Unknown Organization [facility] Address [address] [place] [address] [address] [place] [address] Phone [phone] Care Team Providers Care Director [employer] Name Role Phone kaushik faulkner Unavailable Unavailable
[2025-02-10 07:50] LABS: Basophils Absolute Auto 0.1 K/mm3 (0.0-0.1); Basophils Percent Auto 1.1 % (0.2-1.2); Eosinophils Absolute Auto 0.1 K/mm3 (0-0.3); Hematocrit 38.7 % (42.0-52.0); Hemoglobin 12.8 g/dL (14.0-18.0); Immature Granulocyte Absolute 0.02 K/mm3 (0.00-0.031); Immature Granulocyte Percent A 0.4 % (0-0.5); Lymphocytes Absolute Auto 2.02 K/mm3 (0.9-3.2); Lymphocytes Percent Auto 43.3 % (18.3-44.2); Mean Corpuscular HGB Conc 33.1 g/dl (32-36); Mean Corpuscular Hemoglobin 31.3 pg (26-34); Mean Corpuscular Volume 94.6 fl (80-100); Monocytes Absolute Auto 0.5 K/mm3 (0.1-0.6); Monocytes Percent Auto 11.2 % (2.6-8.5); Neutrophils Absolute Auto 1.9 K/mm3 (1.3-6.7); Platelet Count Result 226 k/mm3 (150-375); Red Blood Count 4.09 M/mm3 (4.6-6.20); Red Cell Distribution Width 12.7 % (11.5-14.5); White Blood Count 4.7 K/mm3 (4.5-10.0)
[2025-02-10 07:59] LABS: Alanine Aminotransferase 28 U/L (6-50); Albumin Level 4.3 g/dL (3.5-5.1); Alkaline Phosphatase 60 U/L (38-126); Anion Gap 8 mmol/L (4-12); Aspartate Amino Transferase 23 U/L (17-59); Bilirubin,Total 0.6 mg/dL (0.2-1.3); Blood Urea Nitrogen 26 mg/dL (9-20); Calcium 8.9 mg/dL (8.4-10.2); Carbon Dioxide 26 mmol/L (22-30); Chloride 105 mmol/L (98-107); Cholesterol 278 mg/dL (0-200); Estimated Glomerular Filt Rate > 60; Glucose 105 mg/dL (65-110); HDL Direct 42 mg/dL; Sodium 139 mmol/L (137-145); Triglycerides 330 mg/dL (<150)
[2025-02-10 08:10] LABS: LDL Cholesterol Direct 93 mg/dL
[2025-02-10 08:29] LABS: Prostate Specific Antigen 0.7 ng/mL (< OR = 4.0)
[2025-02-10 08:50] LABS: Reticulocyte Hemoglobin Conten 35.2 pg (28.2-36.6); Reticulocyte Percent 2.08 % (0.7-4.3); Reticulocytes Absolute 0.08 10^6/uL (0.02-0.10)
[2025-02-10 09:08] LABS: Iron 105 ug/dL (49-181)
[2025-02-10 09:18] LABS: Percent Iron Saturation 35 % (20-50)
[2025-02-15 11:24] LABS: Testosterone Free 51.2 pg/mL (35.0-155.0); Testosterone Total 333 ng/dL (250-1100)
== END 2025-02-10 07:04 | disposition home or self-care (01) ==
PROVIDERS: PCP Internal Medicine; Visit Provider Internal Medicine
DX: N28.1 Cyst of kidney, acquired (principal); I10 Essential (primary) hypertension; E78.5 Hyperlipidemia, unspecified; R79.89 Other specified abnormal findings of blood chemistry; R06.09 Other forms of dyspnea; R93.429 Abnormal radiologic findings on diagnostic imaging of unspecified kidney; Z12.5 Encounter for screening for malignant neoplasm of prostate
CPT/HCPCS: 36415; 74150; 80053; 80061; 82728; 83540; 83550; 84153; 84402; 84403; 85025; 85046; G0103